=== PATIENT | male | born 1990 | race African-American/Black ===

== ENCOUNTER 2023-03-17 04:23 | Day surgery (SDC) | payer OTHER ==
[2023-03-11 15:10] VITALS: BMI 23.1
[2023-03-17] MEDS ORDERED: MIDAZOLAM HCL 2 MG/2 ML SINGLE DOSE VIAL ONE (15:20)
[2023-03-17 17:23] VITALS: BP 114/72; PULSE 54; RESP 17; TEMP 97.3
== END 2023-03-17 17:28 | disposition home or self-care (01) ==
LOC: JASU-SURG 04:23
PROVIDERS: ATTEND Urology
PROC: 0TF3XZZ Fragmentation in Right Kidney Pelvis, External Approach (ICD-10-PCS; principal; 2023-03-17 13:30)
DX: N20.0 Calculus of kidney (principal)